=== PATIENT | male | born 1950 | race Caucasian/White ===

== ENCOUNTER 2016-06-29 23:48 | Observation (INO) | payer MEDICARE ==
--- NOTE | ~2016-06-29 | CO ---
Unit #: [id number] #: [id number] Patient: EMILIANO GONCALVES [id number] [address] [address] [id number] I MR#: [id number] NAME: EMILIANO GONCALVES ROOM: 341 Age: 66 Sex: M Admission Date: 06/30/2016 : 1950 Attending Physician: Ethan Enriquez M.D. Consultation Date: 06/30/2016 CONSULTATION REPORT REASON FOR CONSULTATION Severe anemia. HISTORY OF PRESENTING ILLNESS Mr. Goncalves is a 66-year-old gentleman, who was transferred from group home because of the anemia. He denies any hematemesis or melena. He denies any blood in the stool. He does have dysphagia, mostly choking on pills, etc., for some time. PAST MEDICAL HISTORY Significant for; 1. Colon cancer, status post colon resection in 2012, recently was found to have a spot on the liver, possible malignant. I do not have records at this time. 2. Hemodialysis status. 3. Iron-deficiency anemia, on replacement. 4. On Plavix and Coumadin, possibly for cardiac. Reasons not clear. MEDICATIONS Reviewed. ALLERGIES None. SOCIAL HISTORY History of alcoholism in the past, none for a long time now. Nonsmoker. REVIEW OF SYSTEMS A complete 10-point review of systems was done, which is unremarkable other than as mentioned above. PHYSICAL EXAMINATION VITAL SIGNS: Stable. GENERAL: No acute distress. HEENT: Pupils are equal and reactive. Sclerae anicteric. Oral mucosa moist. NECK: No JVD. No lymphadenopathy. CHEST: Scattered rhonchi. CARDIOVASCULAR: Regular rate and rhythm. No murmurs. ABDOMEN: Soft, nontender, and nondistended. EXTREMITIES: Without clubbing, cyanosis, or edema. NEUROLOGIC: Intact grossly. SKIN: Warm and dry. Unit #: [id number] #: [id number] Patient: EMILIANO GONCALVES DIAGNOSTIC STUDIES LABORATORY RESULTS: Hemoglobin of 6.3, MCV of 83. Chemistries with BUN of 26 and creatinine of 4.6. LFTs and others are pending at this time. ASSESSMENT AND PLAN 1. The patient with severe anemia. I am not sure of the baseline. No overt bleeding. We will replace blood. We will check B12 and iron levels and we will replace as needed. Endoscopy was considered, the patient refuses at this time. Possibility of peptic ulcer disease and others. We will start with PPI therapy for now. 2. Liver metastasis, possibly secondary to colon cancer recurrence. We will get all the records and review before further recommendations. 3. Hemodialysis status. Thank you Dr. Enriquez for this interesting consult. We will follow along. Dictated by... Chriss Santillan/tuyet TD: 06/30/2016 16:02 JOB #: [id number] CONSULTATION REPORT Page 1 of 1 X Ortiz Mclain MD X CONSULTATION REPORT
--- NOTE | ~2016-06-29 | CO ---
Unit #: [id number] #: [id number] Patient: EMILIANO GONCALVES [id number] [address] [address] [id number] I MR#: [id number] NAME: EMILIANO GONCALVES ROOM: 341 Age: 66 Sex: M Admission Date: 06/30/2016 : 1950 Attending Physician: Ethan Enriquez M.D. Consultation Date: 06/30/2016 CONSULTATION REPORT REASON FOR CONSULT End-stage renal disease. Thank you very much for asking me to see this patient in consultation. HISTORY OF PRESENT ILLNESS Mr. Goncalves is a 66-year-old male with a history of end-stage renal disease, on hemodialysis, he states, every Saturday, and Saturday, who was in the hospital at [facility] from 05/04/2016 to 06/10/2016. He was then transferred to [facility]. He has a history of peripheral vascular disease, status post amputation of #3 finger on the left hand; history of metastatic adenocarcinoma, and wished not to have any further workup or treatment and apparently he left the hospital, who was sent here secondary to worsening hemoglobin, upon presentation it was 6.5, at which time he was transfused 2 units of packed red blood cells last night and his repeat hemoglobin is pending. He currently states again he gets his dialysis every Saturday, and Saturday. He is not having any chest pain, shortness of breath, nausea, vomiting, or abdominal pain. Just tired and weak. PAST MEDICAL HISTORY History of end-stage renal disease; history of GI bleed in the past; history of peripheral vascular disease, status post #3 digit on the left hand amputation; history of metastatic adenocarcinoma; history of diabetes mellitus; history of hypertension; history of gastroesophageal reflux disease; history of atrial fibrillation; history of atherosclerotic coronary artery disease; history of SVT; history of liver mass; history of decreased EF around 33% with congestive heart failure; history of hyperlipidemia. SOCIAL HISTORY No alcohol for greater than one year. Nonsmoker currently. FAMILY HISTORY Positive for hypertension and diabetes. ALLERGIES No known drug allergies. MEDICATIONS His current medication upon presentation included Ativan p.r.n., lactulose 30 mL a day, Cipro b.i.d., Coreg two tablets b.i.d., Coumadin 2 mg a day, iron pill daily, Imdur 30 mg a day, Lipitor 80 mg at night, Prinivil 40 mg a day, Nephrocaps daily, hydrocodone p.r.n., PhosLo 667 t.i.d. with meals, Unit #: [id number] #: [id number] Patient: EMILIANO GONCALVES Plavix 75 mg a day, Protonix 40 mg a day, Starlix 30 mg t.i.d. REVIEW OF SYSTEMS As mentioned in the HPI, otherwise negative. PHYSICAL EXAMINATION GENERAL: He is alert. VITAL SIGNS: T-max is 98.4, pulse is 90 to 100, systolic blood pressure 118 to 172 over 40s to 80s. HEENT: Normocephalic and atraumatic. Pupils are equal, round, and reactive to light. Extraocular muscles are intact. Hearing appears to be normal. Mouth clear. No erythema. No exudate. NECK: Supple. No adenopathy. CARDIAC: Irregular rhythm without a rub. No S3 or S4. LUNGS: Clear bilaterally. No wheezes, rhonchi, or rales. ABDOMEN: Bowel sounds positive. Nontender, soft. EXTREMITIES: He has no significant lower extremity swelling. His fistula in his left upper arm with good thrill. He has again partial amputation of #3 finger on his left hand. NEUROLOGIC: He is alert, little confused. : Deferred. DIAGNOSTIC STUDIES LABORATORY RESULTS: Upon presentation, he had a BUN of 26, creatinine 4.6, potassium of 3.9, bicarb is 32, sodium is 132, calcium is 8.4. Hemoglobin 6.3, white count 10,200 with a platelet of 206,000. ASSESSMENT AND PLAN 1. End-stage renal disease. We will continue his hemodialysis every Saturday, , and Saturday while he is here with next dialysis either today or tomorrow morning. His volume status is good. Electrolytes are stable. 2. Hypertension. Continue his current antihypertensive medicines. We will follow trends and adjust as clinically indicated. 3. Anemia, possible recurrent gastrointestinal bleed. GI is consulted. 4. Metastatic colon cancer, by report. 5. Diabetes mellitus. Dictated by..Mayra Payne M.D. KEMI/tuyet MCKEE: 06/30/2016 14:17 TD: 06/30/2016 16:22 JOB #: [id number] CONSULTATION REPORT Page 1 of 1 X Gilma Payne MD CONSULTATION REPORT
--- NOTE | ~2016-06-29 | DS ---
Unit #: [id number] #: [id number] Patient: EMILIANO GONCALVES [id number] [address] [address] [id number] I MR#: [id number] NAME: EMILIANO GONCALVES ROOM: 341 Age: 66 Sex: M Admission Date: 06/30/2016 : 1950 Discharge Date: 07/01/2016 Attending Physician: Ethan Enriquez M.D. Primary Care Physician: No Primary Care Physician DISCHARGE SUMMARY REASON FOR ADMISSION Anemia. FURTHER DIAGNOSES 1. Anemia secondary to possible acute blood loss anemia. 2. History of end-stage renal disease on dialysis. 3. History of colon cancer with liver mass. CONSULTANTS 1. Dr. Ortiz Mclain. 2. Dr. Yonatan Freire. 3. Dr. Jaswinder Payne. HISTORY OF PRESENTING ILLNESS The patient is a 66-year-old man with a past history of ESRD on hemodialysis, history of colon cancer with a liver mass which was diagnosed at [facility], [facility] with a hemoglobin of 6 for anemia. HOSPITAL COURSE He was transfused a total of four units of PRBC. He was on anticoagulation with Coumadin. I kept his Coumadin on his hold in lieu because of GI bleed. He refused to undergo any scopes. Dr. Freire spoke with the patient at length. The patient does not want Hospice at this point but, at the same time, he does not want any aggressive treatments. He is getting two units of blood, part of the last four units today. He will be dialyzed and, as he does not want any further workup, he will be [facility]. I spoke with oncologist, Dr. Freire. He does not recommend any further workup at this point. Dr. Mclain recommended no further workup as the patient is refusing. I explained in detail to the patient that if he changes his mind he came back to the hospital. I did explain to him about Hospice and palliative care. He does not want to talk to them at this point. He wants to think about it a later point. On the day of the discharge, his physical examination: GENERAL APPEARANCE: The patient is alert and oriented x3, lying in the bed, in no acute distress. VITAL SIGNS: Temperature 97.7. Pulse 100. Respiration 18. Blood pressure 162/100. HEENT: Normocephalic, atraumatic. No icterus. PERRLA. Extraoculars intact. NECK: Supple. No JVD. HEART: S1, S2. Regular rate and rhythm. Unit #: [id number] #: [id number] Patient: EMILIANO GONCALVES CHEST: Bilateral equal air entry. Clear to auscultation. ABDOMEN: Soft, nontender. EXTREMITIES: No edema. Normal pulses. DISCHARGE MEDICATIONS 1. Lactulose 20 g p.o. daily. 2. I am holding his Coumadin mainly because of GI bleeds. 3. Starlix 30 mg p.o. three times a day. 4. Phenergan 12.5 mg p.o. q.6 p.r.n. nausea, vomiting. 5. Lipitor 80 mg daily. 6. Ativan 0.5 mg q.4 p.r.n. for anxiety. 7. Coreg. Resume the dosage. Dosage is unknown. 8. Senokot two tabs p.o. twice a day. 9. MiraLax 17 g p.o. daily. 10. Protonix 40 mg daily. 11. Lisinopril 40 mg daily. 12. Insulin sliding scale. 13. Ferrous gluconate 324 mg twice a day. 14. Hydrocodone/Tylenol 5/325 mg one tab q.4 p.r.n. for pain. 15. Plavix 75 mg daily. 16. Protonix 40 mg daily. 17. Ciprofloxacin 500 mg p.o. twice a day for five more days. 18. Calcium acetate (PhosLo) 667 mg three times a day. 19. Imdur 30 mg p.o. daily. 20. Nephrocaps one capsule p.o. daily. Total time spent in his care-35 minutes. Dictated by... Ethan Enriquez M.D. Mike TD: 07/01/2016 11:57 JOB #: [id number] DISCHARGE SUMMARY Page 1 of 1 X X DISCHARGE SUMMARY
--- NOTE | ~2016-06-29 | CO ---
Unit #: [id number] #: [id number] Patient: EMILIANO GONCALVES [id number] [address] [address] [id number] I MR#: [id number] NAME: EMILIANO GONCALVES ROOM: 341 Age: 66 Sex: M Admission Date: 06/30/2016 : 1950 Attending Physician: Ethan Enriquez M.D. Primary Care Physician: Primary Care Physician No Consultation Date: 07/01/2016 CONSULTATION REPORT REASON FOR CONSULTATION Severe anemia, please evaluate. HISTORY OF PRESENT ILLNESS Mr. Emiliano Goncalves is a 66-year-old with a history of metastatic rectal cancer, who has recently diagnosed when he was admitted to [facility]. Historical information obtained from the patient as well as from [facility] records, which were reviewed. According to it, he had colon cancer diagnosed in 2012 after he presented with a lot of rectal bleeding. He did not receive adjuvant chemotherapy. Interim, he has had end-stage renal disease, requiring dialysis for approximately a year. Through his recent hospital admission, he was found to have multiple liver metastasis and diagnosed with metastatic rectal cancer. He received palliative chemotherapy and was discharged thereafter to a senior care. He is admitted to the hospital with a hemoglobin of 6.3 and is currently getting transfused his second unit of packed cells while doing dialysis. He tells me the appetite has been variable, but generally decreased. He has had no rectal bleeding recently. He has had some chest tightness and mild shortness of breathing. PAST MEDICAL HISTORY 1. Metastatic rectal cancer as detailed. 2. End-stage renal disease. ALLERGIES He has no known medication allergies. FAMILY HISTORY Notable for colon cancer. SOCIAL HISTORY [facility] resident. Does not smoke or drink any alcohol. He is single. His next of kin is his daughter, who is his contact for any medical POA. REVIEW OF SYSTEMS A 14 point review of system taken. CONSTITUTIONAL: As discussed. EYES: Negative. EARS, NOSE, MOUTH, AND THROAT: Negative. CARDIOVASCULAR: Some chest tightness. RESPIRATORY: As discussed. GENITOURINARY: Negative. Unit #: [id number] #: [id number] Patient: EMILIANO GONCALVES GASTROINTESTINAL: As discussed. No recent changes in bowel habits. ALLERGIC/LYMPHATIC: Negative. SKIN: Negative. PSYCHIATRIC: Negative. PHYSICAL EXAMINATION GENERAL: He is a middle-aged man, awake, alert and oriented x3. Lying in bed, undergoing dialysis, in no distress. VITAL SIGNS: Temperature 97.7, pulse is 100, respiratory rate is 18, blood pressure is 162/100, and O2 saturation 99% on room air. HEENT: Pupils are equal and reactive well. He is pale, but not icteric. Mucous membranes moist. NECK: No adenopathy, JVD or thyromegaly. CARDIOVASCULAR: First and second heart sounds are heard with loud systolic murmur. LUNGS: Chest expansion is symmetric anteriorly. ABDOMEN: Soft and nontender. Liver and spleen not palpable. EXTREMITIES: Warm and good pulses. No edema, cyanosis or clubbing. NEUROLOGIC: He is awake, alert, and oriented x3 with no focal findings. PSYCHIATRIC: Normal affect. DIAGNOSTIC STUDIES LABORATORY RESULTS: CBC post first unit of transfusion is 12.3, 6.8, and 211. Basic metabolic panel shows a BUN of 26, creatinine is 4.6, EGFR is 12.4. IMAGING RESULTS: Abdominal ultrasound showed a heterogeneous mass measuring 5 x 6.5 cm in the left lobe of the liver. ASSESSMENT/PLAN Mr. Emiliano Hinkle is a 66-year-old with history of end-stage renal disease and metastatic rectal cancer, who has received palliative chemotherapy and is currently a senior care resident. I reviewed these records sent over from [facility] and after detailed discussion with the patient, we discussed about do not resuscitate, which he wishes to be, hospice services, which was discussed several times in [facility] and palliative chemotherapy. He does not see the point of palliative chemotherapy given his end-stage renal disease and after discussion with him, it will be reasonable to transfuse him packed cells, dialyze him and transfer him back to the senior care. Thank you for allowing me to participate in his care. Dictated by... Chriss Shabazz/tuyet TD: 07/01/2016 11:04 JOB #: [id number] Unit #: [id number] #: [id number] Patient: EMILIANO GONCALVES CONSULTATION REPORT Page 1 of 1 X Yonatan Freire MD CONSULTATION REPORT
--- NOTE | ~2016-06-29 | US6 ---
[facility] A Service of [facility] RADIOLOGY TEXT RESULTS PATIENT: EMILIANO GONCALVES LOCATION: A 341-01 : [birth year] UNIT #: [id number] AGE: [address]: Ethan Enriquez MD SEX: M ORDER DR: [id number] [facility] [address] [place], [place] [address] [id number] I MR#: [id number] #: [id number] NAME: EMILIANO GONCALVES : 1950 SEX: M STUDY DATE/TIME: 07/01/2016 9:08 UNIT: [address] ROOM: [facility] STUDY DESCRIPTION: US Abdominal Limited Attending Physician: Ethan Enriquez M.D. Ordering Physician: Ethan Enriquez M.D. Primary Care Physician: No Primary Care Physician MEDICAL IMAGING REPORT This report is preliminary unless electronic signature is present EXAM Abdominal sonogram. HISTORY Liver mass of uncertain duration. No abdominal pain. No abdominal surgical history. Chronic kidney failure with dialysis. TECHNIQUE Limited abdominal sonogram was performed. Patient position was limited because of ongoing dialysis. FINDINGS The right lobe of the liver shows a normal echo pattern. There is a heterogeneous mass occupying much of the lateral segment of the left lobe. It is predominately hyperechoic with mixed areas of lower echoes within it. It measures approximately 5 x 6.5 cm. The echo pattern is not typical for hemangioma, but large hemangiomas can have the typical echo pattern. The pattern is nonspecific and certainly malignancy is not excluded. There is no evidence of ascites. No shadowing gallstones are seen. The right kidney shows no evidence of obstruction. The common bile duct is nondilated measuring 6 mm. No evidence of ascites. IMPRESSION Heterogeneous echo pattern in a mass in the lateral segment of the left lobe that measures about 5 x 6.5 cm. Malignancy is not excluded. Study limited by patient positioning. Dictated by... Bhaskar Moore M.D. THIS IS AN ELECTRONICALLY VERIFIED REPORT [facility] A Service of [facility] RADIOLOGY TEXT RESULTS PATIENT: EMILIANO GONCALVES LOCATION: A 341-01 : [birth year] UNIT #: [id number] AGE: [address]: Ethan Enriquez MD SEX: M ORDER DR: Bhaskar Moore M.D. at 07/01/2016 12:14 PM TANNAF/liset TD: 07/01/2016 10:00 JOB #: [id number] MEDICAL IMAGING REPORT Page 1 of 1 COPY
--- NOTE | ~2016-06-29 | HP ---
Unit #: [id number] #: [id number] Patient: EMILIANO GONCALVES [id number] [address] [address] [id number] I MR#: [id number] NAME: EMILIANO GONCALVES ROOM: 341 Age: 66 Sex: M Admission Date: 06/30/2016 : 1950 Attending Physician: Ethan Enriquez M.D. Primary Care Physician: Primary Care Physician No HISTORY AND PHYSICAL CHIEF COMPLAINT Low hemoglobin. HISTORY OF PRESENT ILLNESS The patient is a 66-year-old pleasant man, who is a [facility] resident was [facility] the [facility] because of anemia. He is a little bit confused but he able to provide some of his history. He could not recollect if he passed any blood in his stool or not. He refuses to undergo any scopes. He mentions he had a history of colon cancer and recently he was hospitalized at [facility] where he was diagnosed with a liver mass. In the initial evaluation, his hemoglobin was around 6. He was given two units of PRBCs and he is admitted for further management. He complains of chest tightness and denies any fever, denies any chills, denies any hemoptysis, denies having any shortness of breath, denies any abdominal pain, diarrhea, discomfort, passing urine. 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 He mentions that he still is making some amount of urine. PAST MEDICAL HISTORY 1. History of end-stage renal disease on hemodialysis. 2. History of colon cancer, recently hospitalized at [place] and he was diagnosed with a liver mass. I am trying to get records from [facility] about this hospitalization recently. ALLERGIES No known drug allergies. HOME MEDICATIONS Include: 1. Ativan 0.5 mg q.4 p.r.n. 2. Lactulose 30 mg p.o. daily 3. Cipro 500 mg p.o. twice a day 4. Coreg two tablets p.o. twice a day 5. Coumadin 2 mg p.o. daily 6. MiraLAX 7. Nephrocaps 8. Hydrocodone 9. Tylenol 10. Phenergan 11. PhosLo 12. Colace 13. Ferrous sulfate 325 mg twice a day 14. Imdur 30 mg daily Unit #: [id number] #: [id number] Patient: EMILIANO GONCALVES 15. Lipitor 80 mg at bedtime 16. Prinivil 40 mg daily 17. Plavix 25 mg daily 18. Protonix 40 mg daily 19. Morphine 5 mg p.o. q.4h p.r.n. for pain 20. Starlix 30 mg p.o. daily REVIEW OF SYSTEMS Complete review of systems is done and negative except for what is mentioned in the H and P. FAMILY HISTORY Positive for colon cancer. SOCIAL HISTORY Currently is a [facility] resident. PHYSICAL EXAMINATION VITAL SIGNS: Temperature 98.3, pulse rate 100, respiratory rate 18, and blood pressure 139/42. GENERAL: The patient is alert and oriented x3, lying in the bed in no acute distress. Slightly confused. HEENT: Normocephalic and atraumatic. No icterus. PERRLA. Extraocular movements intact. NECK: Supple. No jugular venous distention. HEART: S1 and S2. Regular rate and rhythm. CHEST: Bilateral equal air entry, clear to auscultation. ABDOMEN: Soft, nontender. EXTREMITIES: Mild edema. DIAGNOSTIC DATA LABORATORY: Labs show glucose 106, BUN 26, creatinine 4.6, sodium 132, potassium 3.9, chloride 90, bicarb 32. White blood count 10.2, hemoglobin 6.3, initial one, platelets 206. ASSESSMENT/PLAN 1. Anemia, he is transfused two units of PRBCs, will check a repeat H and H. Will consult GI, Dr. Mclain. I spoke with Dr. Mclain and he also spoke with the patient. The patient is refusing any further scopes at this point, will keep the patient on proton pump inhibitors, will hold his Coumadin and possibly will considering holding his Plavix. 2. History of colon cancer with liver METs, will try to get records from [facility] where he was hospitalized recently. Check an ultrasound of the right upper quadrant for liver METs, and will consult oncology and will go from there. 3. He is started on hemodialysis, we will consult renal services to help us with dialysis. 4. History of diabetes, he is on Starlix, Accu-Cheks q.a.c. and q.h.s., low level insulin sliding scale. 5. DVT precautions, bilateral SCDs. COURSE OF THE CARE We will talk to the family and the patient about the course of the care. Dictated by Unit #: [id number] #: [id number] Patient: EMILIANO GONCALVES M.D. PS/lam TD: 06/30/2016 13:02 JOB #: [id number] HISTORY AND PHYSICAL Page 1 of 1 X X HISTORY AND PHYSICAL
[2016-06-30 01:18] LABS: BASOPHIL# 0.1 X10e3 (0-0.3); BASOPHIL% 1.2 % (0-2.5); EOSINOPHIL# 0.4 X10e3 (0-0.7); EOSINOPHIL% 4.1 % (0.0-7.0); HEMATOCRIT 20.1 % (38.0-50.0); LYMPHOCYTE# 1.7 X10e3 (1.0-3.5); LYMPHOCYTE% 16.2 % (17.0-45.0); MEAN CELL VOLUME 83.5 FL (83-96); MEAN CORPUSCULAR HEMOGLOBIN 26.3 PG (28-34); MEAN CORPUSCULAR HGB CONC 31.6 g/dL (30-36); MEAN PLATELET VOLUME 7.1 FL (6.5-11.5); MONOCYTE# 1.2 X10e3 (0-1.0); MONOCYTE% 11.8 % (3.0-12.0); NEUTROPHIL# 6.8 X10e3 (1.5-7.1); NEUTROPHIL% 66.7 % (40-75); PLATELET COUNT 206 X10e3 (140-420); RED BLOOD COUNT 2.41 X10e (3.90-5.60); RED CELL DISTRIBUTION WIDTH 16.9 % (11.0-15.5); WHITE BLOOD COUNT 10.2 X10e3 (4.0-10.5)
[2016-06-30 01:21] LABS: DIFF IND YES; HEMOGLOBIN 6.3 gm/dL (13.0-16.0)
[2016-06-30 01:28] LABS: INR 1.2; PROTHROMBIN TIME (PATIENT) 12.6 SECONDS (9.6-11.5)
[2016-06-30 01:32] LABS: PLATELET ESTIMATE NORMAL (NORMAL)
[2016-06-30 01:33] LABS: ANISOCYTOSIS MOD; HYPOCHROMIA SL
[2016-06-30 01:43] LABS: BUN/CREATININE RATIO 5.65; CALCIUM SERUM 8.4 mg/dL (8.4-10.2); CREATININE SERUM 4.6 mg/dL (0.6-1.4); GLOM FILT RATE Estimated 12.4 mL/min (>60); POTASSIUM 3.9 mmol/L (3.5-5.1)
[2016-06-30] MEDS ORDERED: CIPRO PO (03:04)
[2016-06-30] MEDS ORDERED: LACTULOSE10 GM/15 M PO (03:04)
[2016-06-30] MEDS ORDERED: ATIVAN0.5 M1 PO (03:04)
[2016-06-30] MEDS ORDERED: COREG6.25 MG PO (03:05)
[2016-06-30] MEDS ORDERED: COUMADIN PO (03:08)
[2016-06-30] MEDS ORDERED: DOCUSATE SODIUM/SENN PO (03:09)
[2016-06-30] MEDS ORDERED: LIPITOR80 MG PO (03:10)
[2016-06-30] MEDS ORDERED: IMDUR-ER30 M1 PO (03:10)
[2016-06-30] MEDS ORDERED: FERRO-TIME325 MG PO (03:10)
[2016-06-30] MEDS ORDERED: MIRALAX17 GM PO (03:11)
[2016-06-30] MEDS ORDERED: NEPHROCAPS QT1 EACH PO (03:11)
[2016-06-30] MEDS ORDERED: PRINIVIL40 MG PO (03:11)
[2016-06-30] MEDS ORDERED: HYDROCODON-ACE1 EAC7 PO (03:13)
[2016-06-30] MEDS ORDERED: PHENERGAN12.5 MG PO (03:13)
[2016-06-30] MEDS ORDERED: PHOSLO667 MG PO (03:13)
[2016-06-30] MEDS ORDERED: CLOPIDOGREL75 MG PO (03:13)
[2016-06-30] MEDS ORDERED: PROTONIX PO (03:14)
[2016-06-30] MEDS ORDERED: STARLIX PO (03:15)
[2016-06-30] MEDS ORDERED: ROXANOL W/DR20 MG/ML PO (03:15)
[2016-06-30 14:14] LABS: HEMATOCRIT 23.6 % (38.0-50.0); HEMOGLOBIN 7.5 gm/dL (13.0-16.0); MEAN CELL VOLUME 83.3 FL (83-96); MEAN CORPUSCULAR HEMOGLOBIN 26.5 PG (28-34); MEAN CORPUSCULAR HGB CONC 31.7 g/dL (30-36); MEAN PLATELET VOLUME 7.1 FL (6.5-11.5); RED BLOOD COUNT 2.83 X10e (3.90-5.60); RED CELL DISTRIBUTION WIDTH 15.9 % (11.0-15.5); WHITE BLOOD COUNT 10.2 X10e3 (4.0-10.5)
[2016-06-30 14:39] LABS: BUN/CREATININE RATIO 6.93; CALCIUM SERUM 8.4 mg/dL (8.4-10.2); CREATININE SERUM 4.9 mg/dL (0.6-1.4); GLOM FILT RATE Estimated 11.5 mL/min (>60)
[2016-07-01 06:04] LABS: HEMATOCRIT 21.2 % (38.0-50.0); MEAN CELL VOLUME 83.9 FL (83-96); MEAN CORPUSCULAR HEMOGLOBIN 26.9 PG (28-34); MEAN PLATELET VOLUME 7.9 FL (6.5-11.5); RED BLOOD COUNT 2.52 X10e (3.90-5.60); RED CELL DISTRIBUTION WIDTH 16.7 % (11.0-15.5); WHITE BLOOD COUNT 12.3 X10e3 (4.0-10.5)
[2016-07-01 06:09] LABS: HEMOGLOBIN 6.8 gm/dL (13.0-16.0)
[2016-07-01 06:58] LABS: BUN/CREATININE RATIO 7.74; CALCIUM SERUM 8.3 mg/dL (8.4-10.2); CREATININE SERUM 6.2 mg/dL (0.6-1.4); GLOM FILT RATE Estimated 8.7 mL/min (>60); POTASSIUM 4.9 mmol/L (3.5-5.1)
[2016-07-01 19:43] LABS: HEMATOCRIT 31.6 % (38.0-50.0)
[2016-07-01 19:44] LABS: HEMOGLOBIN 10.4 gm/dL (13.0-16.0)
== END 2016-07-01 21:10 ==
LOC: CED 23:48 → CEDOF 06-30 02:43 → C3A PCU 06-30 02:43 → CEDOF 06-30 02:55 → CED 06-30 02:55 → CEDOF 06-30 05:20 → C3A PCU 06-30 05:20
PROVIDERS: Emergency Medicine; Internal Medicine
DX: D64.9 Anemia, unspecified (principal); C18.9 Malignant neoplasm of colon, unspecified; C78.7 Secondary malignant neoplasm of liver and intrahepatic bile duct; I12.0 Hypertensive chronic kidney disease with stage 5 chronic kidney disease or end stage renal disease; E11.22 Type 2 diabetes mellitus with diabetic chronic kidney disease; N18.6 End stage renal disease; D63.1 Anemia in chronic kidney disease; Z99.2 Dependence on renal dialysis; Z79.4 Long term (current) use of insulin; Z79.01 Long term (current) use of anticoagulants; Z79.02 Long term (current) use of antithrombotics/antiplatelets; Z80.0 Family history of malignant neoplasm of digestive organs; I73.9 Peripheral vascular disease, unspecified; Z89.022 Acquired absence of left finger(s); Z83.3 Family history of diabetes mellitus; F10.21 Alcohol dependence, in remission
CPT/HCPCS: 36415; 36430; 76705; 80048; 81270; 82274; 82947; 85014; 85018; 85025; 85027; 85610; 86850; 86900; 86901; 86923; 87340; 99285; G0257; G0378; P9016; Q4081